=== PATIENT | male | born 1970 | race Caucasian/White ===

== ENCOUNTER → 2022-02-04 11:24 | Outpatient (CLI) | payer OTHER, SELFPAY ==
--- NOTE | 2022-02-04 | DI.RAD.S_ITS ---
PROCEDURE: XR WRIST RT MIN 3V INDICATIONS: right wrist trauma TECHNIQUE: 4 views of the wrist were acquired. COMPARISON: None. FINDINGS: Bones: Possible nondisplaced intra-articular fracture at the ulnar aspect of the radius extending into the radiocarpal joint. Osseous structures otherwise intact. No suspicious bony lesions. Scaphoid view: Intact scaphoid Soft tissues: No suspicious soft tissue calcifications. IMPRESSION: Suspected nondisplaced intra-articular fracture of the distal radius. Recommend correlation with point tenderness. Repeat radiographs could be obtained in 7-10 days for further evaluation. Approved by: Ki Langford M.D. on 02/04/2022 at 16:58
== END ==
PROVIDERS: Referring Provider Family Medicine; Visit Provider Family Medicine
DX: S69.91XA Unspecified injury of right wrist, hand and finger(s), initial encounter (principal); W01.0XXA Fall on same level from slipping, tripping and stumbling without subsequent striking against object, initial encounter
CPT/HCPCS: 73110

== ENCOUNTER → 2022-03-12 09:58 | Outpatient (CLI) | payer OTHER, SELFPAY ==
--- NOTE | 2022-03-12 | DI.RAD.S_ITS ---
PROCEDURE: XR WRIST RT MIN 3V INDICATIONS: f/u right wrist fracture TECHNIQUE: 4 views of the wrist were acquired. COMPARISON: [facility], CR, XR WRIST RT MIN 3V, 02/04/2022, 11:34. FINDINGS: Bones: There is interval healing at patient's known distal radial intra-articular fracture site with increased sclerosis. No significant displacement is noted. Wrist alignment is anatomic. No new fracture or dislocation. No suspicious bony lesions. Scaphoid view: Scaphoid is intact. Soft tissues: No suspicious soft tissue calcifications. IMPRESSION: Interval healing at distal radial fracture site with anatomic wrist alignment. No new fracture or dislocation. Dictated by: Stanley Stanford M.D. on 03/12/2022 at 10:33 Approved by: Stanley Stanford M.D. on 03/12/2022 at 10:34
== END ==
PROVIDERS: Referring Provider Family Medicine; Visit Provider Family Medicine
DX: S52.571D Other intraarticular fracture of lower end of right radius, subsequent encounter for closed fracture with routine healing (principal); X58.XXXD Exposure to other specified factors, subsequent encounter
CPT/HCPCS: 73110